=== PATIENT | male | born 1960 | race Caucasian/White ===

== ENCOUNTER → 2017-10-06 | Outpatient (CLI) | payer OTHER | LOC: CARD 13:00 | PROVIDERS: ATTEND Internal Medicine Cardiovascular Disease | DX: R07.9 Chest pain, unspecified (principal); E78.2 Mixed hyperlipidemia; I10 Essential (primary) hypertension; F41.9 Anxiety disorder, unspecified | CPT/HCPCS: 93306 ==

== ENCOUNTER → 2017-10-13 | Outpatient (CLI) | payer OTHER ==
--- NOTE | 2017-10-16 07:44 | STRESS TEST ---
DATE OF SERVICE: 10/13/2017 EXERCISE STRESS ECHOCARDIOGRAM REPORT Baseline heart rate is 53. Baseline blood pressure 131/87. Baseline EKG is sinus rhythm with no ischemic changes. In summary, the patient started exercising with a baseline heart rate, blood pressure and EKG mentioned above. He was able to exercise for a total of 12 minutes on standard [facility] protocol, achieving maximum heart rate of 154, which is 93% of maximum expected heart rate. With peak exercise level, blood pressure was 185/74. EKG was showing no ischemic changes. During recovery, heart rate and blood pressure returned to baseline. EKG returned to baseline. The resting and stressed images were reviewed and compared in the parasternal long axis, parasternal short axis, apical four chamber and apical two chamber views. Review of the images showed normal left ventricular size with normal contractility, no ischemic changes. Estimated ejection fraction is 60%. CONCLUSION: 1. Excellent exercise tolerance a total of 12 minutes on standard [facility] protocol, total of 12.3 METS achieving 93% of maximum expected heart rate. 2. Appropriate heart rate and blood pressure response to exercise returned to baseline during recovery. 3. Negative exercise stress test by EKG criteria. 4. Normal echocardiographic images at rest and with peak stress level with no ischemic changes. Estimated ejection fraction is 60%. Job ID: [id number] DocumentID: [id number] Dictated Date: 10/13/2017 18:53:38 Screen Making Supervisor Date: 10/14/2017 00:22:22 Dictated By: ALCON MCCALL MD
== END ==
LOC: CARD 09:46
PROVIDERS: ATTEND Internal Medicine Cardiovascular Disease
DX: R07.9 Chest pain, unspecified (principal); E78.2 Mixed hyperlipidemia; I10 Essential (primary) hypertension; F41.9 Anxiety disorder, unspecified
CPT/HCPCS: 93351